=== PATIENT | female | born 1960 | race Caucasian/White ===

== ENCOUNTER → 2017-05-06 | Outpatient (CLI) | payer OTHER ==
[~2017-05-06] MED LIST: ADDERALL 15 MG15 MG PO; ADULT LOW DOSE81 MG PO; ALBUTEROL INH PO; ASPIRIN325 PO; BENAZEPRIL HCL20 MG PO; BENAZEPRIL-HCT1 EA11 PO; CYMBALTA60 MG PO; DOCUSATE SODIU100 M1 PO; DUONEB 2.5-0.5 M3 ML INH; EFFEXOR XR150 MG PO; LIDODERM 5%1 PATC1 TRANSDERM; LYRICA 75 MG CA75 MG PO; MAXALT10 MG PO; METAMUCIL PAC1 UDPKT PO; METFORMIN HCL500 MG PO; MOBIC7.5 MG PO; NORFLEX100 MG PO; OSTEO BIFLEX PO; OXYCODONE HCL 55 MG PO; PERCOCET PO; PRILOSEC40 MG PO; RIZATRIPTAN10 M1 PO; STOOL SOFTENER1 EAC1 PO; ULTIMATE FLORA PO; VENLAFAXIN75 MG/1 T2 PO; VENLAFAXINE HC150 M1 PO; VENTOLIN HFA 1818 GM INH; VSL #3 PO; XARELTO10 MG PO; ZYRTEC10 MG PO
--- NOTE | 2017-05-06 17:18 | 2DMMODE ---
[place] [address] 2 D/M-MODE ECHOCARDIOGRAM Name: LUCERO RAMOS Room: [facility]#: [id number] Admission: 05/06/17 Attend Phys: Popeye Toro, Discharge: Date of : 60 Date of Service: 05/06/17 1718 Report #: [id number] THIS REPORT FOR: //name// APPROVED REPORT Study performed: 05/06/2017 13:04:32 EXAM: Comprehensive 2D, Doppler, and color-flow Echocardiogram Patient Location: Out-Patient Status: routine BSA: 2.45 HR: 89 bpm BP: 140/80 mmHg Other Information Study Quality: Adequate Indications Sarcoidosis 2D Dimensions LVEF(%): 75.48 (>50%) IVSd: 12.05 (7-11mm) LVOT Diam: 20.62 (18-24mm) LVDd: 44.74 mm PWd: 10.02 (7-11mm) Ascending Ao: 35.54 (22-36mm) LVDs: 25.02 (25-40mm) Aortic Root: 37.00 mm Mohr's LVEF: 75.48 % Volumes Left Atrial Volume (Systole) LA ESV Index: 15.10 mL/m2 Aortic Valve AoV Peak Farooq.: 1.23 m/s AO Peak Gr.: 6.04 mmHg LVOT Max P.51 mmHg AO Mean Gr.: 3.34 mmHg LVOT Mean P.37 mmHg LVOT Max V: 1.06 m/s AO V2 VTI: 19.25 cm LVOT Mean V: 0.71 m/s NNAMDI (VTI): 3.41 cm2 LVOT V1 VTI: 19.67 cm Mitral Valve E/A Ratio: 0.61 MV Decel. Time: 267.28 [place] [address] 2 D/M-MODE ECHOCARDIOGRAM Name: LUCERO RAMOS Room: [facility]#: [id number] Admission: 05/06/17 Attend Phys: Popeye Toro, Discharge: Date of : 60 Date of Service: 05/06/17 1718 Report #: [id number] MV E Max Farooq.: 0.53 m/s MV PHT: 77.51 ms MVA (PHT): 2.84 cm2 TDI E/Lateral E': 3.53 E/Medial E': 4.08 Medial E' Farooq.: 0.13 m/s Lateral E' Farooq.: 0.15 m/s Pulmonary Valve PV Peak Farooq.: 1.14 m/s PV Peak Gr.: 5.21 mmHg Left Ventricle The left ventricle is normal size. There is normal LV segmental wall motion. There is normal left ventricular wall thickness. Left ventricular systolic function is normal. The left ventricular ejection fraction is within the normal range. LVEF is 60-65%. Grade I - abnormal relaxation pattern. Right Ventricle The right ventricle is normal size. The right ventricular systolic function is normal. Atria The left atrium size is normal. The right atrium size is normal. Aortic Valve The aortic valve is normal in structure. No aortic regurgitation is present. There is no aortic valvular stenosis. Mitral Valve The mitral valve is normal in structure. There is no mitral valve regurgitation noted. No evidence of mitral valve stenosis. Tricuspid Valve The tricuspid valve is normal in structure. There is no tricuspid valve regurgitation noted. Pulmonic Valve The pulmonary valve is normal in structure. Mild pulmonic regurgitation. Great Vessels The aortic root is normal in size. IVC is normal in size and collapses with >50% [place] [address] 2 D/M-MODE ECHOCARDIOGRAM Name: LUCERO RAMOS Room: [facility]#: [id number] Admission: 05/06/17 Attend Phys: Popeye Toro, Discharge: Date of : 60 Date of Service: 05/06/17 1718 Report #: [id number] Pericardium There is no pericardial effusion. <Conclusion> The left ventricle is normal size. There is normal left ventricular wall thickness. Left ventricular systolic function is normal. The left ventricular ejection fraction is within the normal range. LVEF is 60-65%. Grade I - abnormal relaxation pattern. The right ventricle is normal size. The left atrium size is normal. The aortic valve is normal in structure. The mitral valve is normal in structure. The tricuspid valve is normal in structure. IVC is normal in size and collapses with >50% inspiration There is no pericardial effusion. There is normal LV segmental wall motion. <ELECTRONICALLY SIGNED> By: Omar Brooks MD, [facility] 05/06/171717 17 17 Omar Brooks MD, FACC /INF
== END ==
LOC: M.CRD 03-19 10:00
DX: D86.9 Sarcoidosis, unspecified (principal)